=== PATIENT | female | born 1955 | race Caucasian/White ===

== ENCOUNTER 2020-12-17 09:16 | Outpatient (CLI) | payer MEDICARE, MEDICAID | END 2020-12-17 09:17 | disposition home or self-care (01) | LOC: CSHULT 09:16 | PROVIDERS: ATTEND Internal Medicine Gastroenterology | DX: R10.10 Upper abdominal pain, unspecified (principal); R19.7 Diarrhea, unspecified; R11.0 Nausea; R13.10 Dysphagia, unspecified; K76.0 Fatty (change of) liver, not elsewhere classified; K83.9 Disease of biliary tract, unspecified | CPT/HCPCS: 76705 ==

== ENCOUNTER 2021-09-28 11:07 | Outpatient (CLI) | payer MEDICARE, MEDICAID | END 2021-09-28 11:08 | disposition home or self-care (01) | LOC: CSHCT 11:07 | PROVIDERS: ATTEND Physician Assistant | DX: R22.2 Localized swelling, mass and lump, trunk (principal) | CPT/HCPCS: 71250 ==

== ENCOUNTER 2022-04-19 08:26 | Outpatient (CLI) | payer MEDICARE, MEDICAID | END 2022-04-19 08:27 | disposition home or self-care (01) | LOC: CSHRAD 08:26 | PROVIDERS: ATTEND Physician Assistant | DX: M25.562 Pain in left knee (principal); M25.561 Pain in right knee; M25.862 Other specified joint disorders, left knee; M25.861 Other specified joint disorders, right knee | CPT/HCPCS: 73565 ==

== ENCOUNTER 2022-06-03 13:57 | Outpatient (CLI) | payer MEDICARE, MEDICAID ==
[~2022-06-03 13:57] MED LIST: Magnevist 469MG/ML 20 ML VIAL ONE
== END 2022-06-03 13:58 | disposition home or self-care (01) ==
LOC: CSHMRI 13:57
PROVIDERS: ATTEND Physician Assistant
DX: C22.0 Liver cell carcinoma (principal)
CPT/HCPCS: 71250; 74183; A9579

== ENCOUNTER 2022-11-15 09:09 | Outpatient (CLI) | payer OTHER, MEDICAID ==
[2022-11-15] MEDS ORDERED: Iopamidol 300 61% 100 ML VIAL FS ONE (09:10)
[2022-11-15] MEDS ORDERED: Magnevist 469MG/ML 20 ML VIAL ONE (09:14)
== END 2022-11-15 09:10 | disposition home or self-care (01) ==
LOC: CSHMRI 09:09
PROVIDERS: ATTEND Internal Medicine Hematology & Oncology
DX: C22.0 Liver cell carcinoma (principal); Z87.891 Personal history of nicotine dependence; K74.69 Other cirrhosis of liver; Z98.890 Other specified postprocedural states
CPT/HCPCS: 71260; 74183